=== PATIENT | female | born 1980 | race African-American/Black ===

== ENCOUNTER → 2016-07-01 | Outpatient (CLI) | payer OTHER | END | disposition home or self-care (01) | LOC: HKI 13:27 | PROVIDERS: ATTEND Orthopaedic Surgery | DX: S83.281A Other tear of lateral meniscus, current injury, right knee, initial encounter (principal); X58.XXXA Exposure to other specified factors, initial encounter; M22.41 Chondromalacia patellae, right knee | CPT/HCPCS: G0463 ==

== ENCOUNTER 2016-12-20 04:33 | Emergency (ER) | payer OTHER ==
[~2016-12-20] VITALS: Ht 162.6 cm; Wt 72.5 kg
[2016-12-20 04:35] VITALS: Ht 162.6 cm; Wt 72.5 kg
--- NOTE | 2016-12-20 04:49 | ERD ---
ER Documentation Chief Complaint Date/Time DATE: 12/20/16 TIME: 04:49 Chief Complaint right knee pain since 7 hours ago, denies injury HPI 36-year-old female presents here in emergency department for complaints of right ear pain that started 7 hours prior to arrival. Patient has been having problems and issues with her right knee every since years ago, patient was seen here in emergency department last year for the same type of right knee pain. Patient denies any trauma that knee. Patient discussed the pain as throbbing pain, pressure erythematous with movement. Patient before for the same problem. Her ROS All systems reviewed and are negative except as per history of present illness. Medications Home Meds Active Scripts Tramadol HCl (Tramadol HCl) 50 Mg Tablet, 50 MG PO Q6 Y for SEVERE PAIN LEVEL 7- 10, #20 TAB Prov:DIANELYS SHEFFIELD [employer] 12/20/16 Ibuprofen* (Motrin*) 600 Mg Tab, 600 MG PO Q6H Y for PAIN AND OR ELEVATED TEMP, #30 TAB Prov:DIANELYS SHEFFIELD [employer] 12/20/16 Allergies Allergies: Coded Allergies: No Known Allergy (Verified , 10/18/13) PMhx/Soc Medical and Surgical Hx: pt denies Medical Hx History of Surgery: Yes (right knee arthroscopy, D&C) Anesthesia Reaction: No Hx Neurological Disorder: No Hx Respiratory Disorders: No Hx Cardiac Disorders: No Hx Psychiatric Problems: No Hx Miscellaneous Medical Probl: No Hx Alcohol Use: No Hx Substance Use: No Hx Tobacco Use: No FmHx Family History: No coronary disease, No diabetes, No other Physical Exam Vitals Vital Signs Date Time Temp Pulse Resp B/P Pulse Ox O2 Delivery O2 Flow Rate FiO2 12/20/16 04:35 97.8 70 20 107/57 99 Physical Exam GENERAL: The patient is well developed and appropriate for usual state of health, in no apparent distress. CHEST: Clear to auscultation bilaterally. There are no rales, wheezes or rhonchi. HEART: Regular rate and rhythm. No murmurs, clicks, rubs or gallops. No S3 or S4. ABDOMEN: Soft, nontender and nondistended. Good bowel sounds. No rebound or guarding. No gross peritonitis. No gross organomegaly or masses. No Madison sign or McBurney point tenderness. BACK: No midline or flank tenderness. EXTREMITIES: Noted tenderness on palpation on the patellar aspect of the right knee. No deformity noted. No redness noted. Equal pulses bilaterally. Full range of motion about the joints of the body. Grossly neurovascularly intact. NEURO: Alert and oriented. Cranial nerves 2-12 intact. Motor strength in all 4 extremities with 5/5 strength. Sensation grossly intact. Normal speech and gait. SKIN: There is no apparent rash or petechia. The skin is warm and dry. HEMATOLOGIC AND LYMPHATIC: There is no evidence of excessive bruising or lymphedema. No gross cervical, axillary, or inguinal lymphadenopathy. Results 24 hrs PROCEDURE: XR right knee. CLINICAL INDICATION: Knee pain TECHNIQUE: AP weightbearing, PA weightbearing, lateral weight bearing and sunrise views are available for review. COMPARISON: None available FINDINGS: There is mild narrowing of the medial tibial femoral compartment. There is a tiny calcified loose body adjacent to the medial tibial femoral compartment. The osseous structures are otherwise normal in mineralization, architecture and alignment. No fractures are identified. No osseous lesions are identified. The soft tissues are unremarkable. IMPRESSION: Mild narrowing of the medial tibial femoral compartment (query osteoarthrosis) Tiny calcified loose body adjacent to the medial tibial femoral compartment. RPTAT: HGDB .Jigar Camejo MD, MD Date Time Electronically viewed and signed by .Jigar Camejo MD, on 04/29/2016 09:18 .B/ an Hector wrap was applied on the patients right knee_. After application of the Hector wrap, patient has intact sensation and circulation on distal area of the affected joint. Patient does not complain of numbness or tingling after application of the Hector wrap. Patient tolerated procedure well. Crutches was given to use afterwards. Procedures/MDM Medical Decision Making: Patient's pain is most likely consistent with a knee sprain, possible ligament injury, possible degenerative disc disease within the previous x-ray done. There is no suspicion for neurovascular compromise. Patient has intact sensation and circulation of the affected extremity. There is low suspicion for septic arthritis. Patient does not have any fever. Radiology exams were done one year ago for the same problem, patient denied any injury on the affected area, repeat x-rays not necessary at this time. Disposition: Home. Patient is given prescription for ibuprofen for mild to moderate pain, tramadol for severe pain. Patient was advised to elevate the affected area and apply ice on affected area. Patient was advised that if symptoms are worse, numbness, tingling, high fever, unable to move joint, worsening symptoms, to return to emergency department immediately. Otherwise, patient is advised to follow up with the primary care doctor in 5-7 days for reevaluation of symptoms. Departure Diagnosis: Primary Impression: Knee pain Laterality: right Chronicity: chronic Qualified Code: M25.561 - Chronic pain of right knee Condition: Stable DIANELYS SHEFFIELD NP Dec 20, 2016 04:49
[2016-12-20] MEDS ORDERED: IBUP-1542 PO (05:07)
[2016-12-20] MEDS ORDERED: TRAM50TA2 PO (05:07)
[2016-12-20] MEDS ORDERED: KETOROLAC 60 MG INJ IM STA (05:11)
== END 2016-12-20 05:55 | disposition home or self-care (01) ==
LOC: FTE 04:33
DX: M25.561 Pain in right knee (principal)
CPT/HCPCS: 96372; J1885

== ENCOUNTER 2017-08-12 04:34 | Emergency (ER) | END 2017-08-12 09:50 | disposition home or self-care (01) ==

== ENCOUNTER 2018-02-09 10:50 | Day surgery (SDC) | END 2018-02-09 16:20 | disposition home or self-care (01) ==